=== PATIENT | female | born 1935 | race Caucasian/White ===

== ENCOUNTER → 2017-11-02 | Outpatient (CLI) | payer MEDICARE | LOC: M RAD 09:41 | DX: S06.0X0A Concussion without loss of consciousness, initial encounter (principal); I63.032 Cerebral infarction due to thrombosis of left carotid artery; X58.XXXA Exposure to other specified factors, initial encounter; Y92.89 Other specified places as the place of occurrence of the external cause; Y93.89 Activity, other specified; Y99.8 Other external cause status | CPT/HCPCS: 70450 ==

== ENCOUNTER → 2020-09-25 | Outpatient (REF) | payer MEDICARE ==
[~2020-09-25] MED LIST: AMLO1TAB25 PO; AMLO2.5T3 PO; AMLO25TA PO; ASPI81CH33 PO; ASPI81TAEC PO; ATOR1TAB21 PO; CARA1TAB6 PO; CETI10TA PO; CLOP75TA2 PO; DEXA5LQ PO; DOXA1TAB40 PO; EPIP0.3I2 IJ; GLUC1CAP9 PO; HYDR-2773 PO; LANS15CA PO; LIPI20TA PO; LOSA50TA88 PO; OMEP1CAP73 PO; POLYOPD OU; ZOCO40TA PO; [UNRECOGNIZED DRUG - CODE] PO; [UNRECOGNIZED DRUG - CODE] PO; [UNRECOGNIZED DRUG - CODE] PO
== END ==
LOC: M LAB REF 15:44
PROVIDERS: ATTEND Nurse Practitioner Family
DX: R30.0 Dysuria (principal)

== ENCOUNTER 2022-01-26 11:12 | Inpatient (IN) | payer MEDICARE ==
[~2022-01-26] VITALS: Ht 152.4 cm; Wt 66.2 kg
[~2022-01-26 11:12] MED LIST changes: +ASPI-569 PO; -ASPI81TAEC PO; +LOSA50TA28 PO; -LOSA50TA88 PO
[2022-01-26 11:57] LABS: BASO % 0.2 % (0.0-1.0); EOS # 0.1 10^3/uL (0.0-0.5); EOS % 0.8 % (0.0-3.0); HEMATOCRIT 43.9 % (36.0-47.0); HEMOGLOBIN 14.2 g/dl (12.0-15.5); LYMPH # 1.3 10^3/uL (1.5-5.0); LYMPH % 15.2 % (24.0-44.0); MEAN CORPUSCULAR HEMOGLOBIN 30.3 pg (27.0-33.0); MEAN CORPUSCULAR HGB CONC 32.3 g/dl (32.0-36.5); MEAN CORPUSCULAR VOLUME 93.8 fl (80.0-96.0); MONO # 0.7 10^3/uL (0.0-0.8); MONO % 7.7 % (2.0-8.0); NEUTROPHILS # 6.7 10^3/uL (1.5-8.5); NEUTROPHILS % 75.6 % (36.0-66.0); PLATELET COUNT, AUTOMATED 277 10^3/uL (150-450); RED BLOOD COUNT 4.68 10^6/uL (4.00-5.40); WHITE BLOOD COUNT 8.8 10^3/uL (4.0-10.0)
[2022-01-26 12:09] LABS: INR 1.49; PROTHROMBIN TIME 18.4 SECONDS (12.7-14.5)
[2022-01-26 12:33] LABS: CK-MB VALUE MASS 1.4 NG/ML (<3.6); MB/CK RELATIVE INDEX 0.71 (< OR =4)
[2022-01-26 13:26] LABS: BLOOD UREA NITROGEN 15 MG/DL (7-18); CALCIUM LEVEL 8.9 MG/DL (8.8-10.2); CARBON DIOXIDE LEVEL 27 MEQ/L (21-32); CHLORIDE LEVEL 106 MEQ/L (98-107); GLOMERULAR FILTRATION RATE > 60.0 (>32); GLUCOSE, FASTING 95 MG/DL (70-100); SODIUM LEVEL 139 MEQ/L (136-145)
[2022-01-26] MEDS ORDERED: ISOVUE-370 76% 100ML VIAL As Ordered ONE (14:08)
[2022-01-26] MEDS ORDERED: ATOR40TA75 PO (14:17)
[2022-01-26] MEDS ORDERED: POTA10CA32 PO (14:17)
[2022-01-26] MEDS ORDERED: LOSA100T45 PO (14:17)
[2022-01-26] MEDS ORDERED: AMLO1TAB25 PO (14:17)
[2022-01-26] MEDS ORDERED: POTA1TAB14 PO (14:17)
[2022-01-26] MEDS ORDERED: ELIQ5TAB PO (14:18)
[2022-01-26] MEDS ORDERED: CITA20TA6 PO (14:18)
[2022-01-26] MEDS ORDERED: SPIR-10 PO (14:18)
[2022-01-26] MEDS ORDERED: HOME MED LIST COMPLETE! XX SCH (14:20)
[2022-01-26 14:51] LABS: RSV AMPLIFICATION NEGATIVE (NEGATIVE)
[2022-01-26] MEDS ORDERED: POLYVINYL ALCOHOL OPHTH SOLN 15 ML(LIQUITEARS) OU PRN (15:25)
[2022-01-26 17:15] LABS: BLOOD UREA NITROGEN 13 MG/DL (7-18); CALCIUM LEVEL 8.9 MG/DL (8.8-10.2); CARBON DIOXIDE LEVEL 28 MEQ/L (21-32); CHLORIDE LEVEL 105 MEQ/L (98-107); CREATININE FOR GFR 0.82 MG/DL (0.55-1.30); GLOMERULAR FILTRATION RATE > 60.0 (>32); GLUCOSE, FASTING 87 MG/DL (70-100); POTASSIUM SERUM 4.5 MEQ/L (3.5-5.1); SODIUM LEVEL 138 MEQ/L (136-145)
[2022-01-26] MEDS ORDERED: hydrALAZINE 20MG/ML 1ML VIAL (J0360 PER 20MG) IV PRN (17:45)
[2022-01-26 19:16] VITALS: BP 138/89
[2022-01-26] MEDS ORDERED: ASPIRIN 81 MG CHEW TABLET PO ONE (19:55)
[2022-01-26] MEDS: APIXABAN 5 MG TAB (ELIQUIS) PO SCH (21:00)
[2022-01-26] MEDS ORDERED: ROSUVASTATIN 10 MG TAB (CRESTOR) PO SCH (21:00)
[2022-01-26] MEDS ORDERED: ATORVASTATIN 20 MG TAB PO SCH (21:00)
[2022-01-26] MEDS ORDERED: CitaloPRAM (CeleXA) 20 MG TAB PO SCH (21:00)
[2022-01-26 22:22] LABS: CALCIUM LEVEL 8.8 MG/DL (8.8-10.2); CREATININE FOR GFR 1.02 MG/DL (0.55-1.30); GLOMERULAR FILTRATION RATE 54.6 (>32); POTASSIUM SERUM 3.9 MEQ/L (3.5-5.1)
[2022-01-27 00:04] VITALS: BP 133/66
[2022-01-27 03:50] VITALS: BP 153/65
[2022-01-27 03:51] LABS: HEMATOCRIT 40.6 % (36.0-47.0); HEMOGLOBIN 13.4 g/dl (12.0-15.5); MEAN CORPUSCULAR HEMOGLOBIN 30.5 pg (27.0-33.0); MEAN CORPUSCULAR VOLUME 92.3 fl (80.0-96.0); PLATELET COUNT, AUTOMATED 291 10^3/uL (150-450); WHITE BLOOD COUNT 8.6 10^3/uL (4.0-10.0)
[2022-01-27 04:15] LABS: BLOOD UREA NITROGEN 15 MG/DL (7-18); CALCIUM LEVEL 8.8 MG/DL (8.8-10.2); CARBON DIOXIDE LEVEL 28 MEQ/L (21-32); CHLORIDE LEVEL 109 MEQ/L (98-107); CREATININE FOR GFR 0.87 MG/DL (0.55-1.30); GLOMERULAR FILTRATION RATE > 60.0 (>32); GLUCOSE, FASTING 88 MG/DL (70-100); SODIUM LEVEL 142 MEQ/L (136-145)
[2022-01-27 04:18] LABS: CHOLESTEROL RISK RATIO 2.271 (<5)
[2022-01-27] MEDS ORDERED: SELF1KIT MC (06:36)
[2022-01-27] MEDS ORDERED: ATOR1TAB21 PO (06:36)
[2022-01-27] MEDS ORDERED: amLODIPine 5 MG TAB PO PRN (06:40)
[2022-01-27 08:00] VITALS: BP 137/65
[2022-01-27] MEDS: APIXABAN 5 MG TAB (ELIQUIS) PO SCH (08:36)
[2022-01-27] MEDS ORDERED: ASPIRIN 81 MG CHEW TABLET PO SCH (09:00)
[2022-01-27] MEDS ORDERED: OMEPRAZOLE 20MG CAP PO SCH (09:00)
[2022-01-27 10:44] LABS: CALCIUM LEVEL 9.4 MG/DL (8.8-10.2); CREATININE FOR GFR 1.03 MG/DL (0.55-1.30); POTASSIUM SERUM 4.1 MEQ/L (3.5-5.1)
== END 2022-01-27 13:46 | disposition home or self-care (01) | DRG 65 ==
LOC: M ED 11:12 → EDBD 11:12 → M ED INP 15:19 → ENRESERV 16:43 → M PCU 19:02
PROVIDERS: ADMIT General Practice; ATTEND General Practice
DX: I63.59 Cerebral infarction due to unspecified occlusion or stenosis of other cerebral artery (principal); G81.91 Hemiplegia, unspecified affecting right dominant side; I10 Essential (primary) hypertension; E78.5 Hyperlipidemia, unspecified; K21.9 Gastro-esophageal reflux disease without esophagitis; I27.20 Pulmonary hypertension, unspecified; I48.0 Paroxysmal atrial fibrillation; M17.0 Bilateral primary osteoarthritis of knee; J30.9 Allergic rhinitis, unspecified; I65.22 Occlusion and stenosis of left carotid artery; Z79.01 Long term (current) use of anticoagulants; Z79.899 Other long term (current) drug therapy; Z91.030 Bee allergy status

== ENCOUNTER 2023-08-22 13:18 | Observation (INO) | payer MEDICARE ==
[~2023-08-22] VITALS: Ht 152.4 cm; Wt 65.7 kg
[~2023-08-22 13:18] MED LIST changes: +ARTIDRO4 OU; +ATOR40TA75 PO; +CITA20TA6 PO; +ELIQ5TAB PO; +LOSA100T46 PO; -POLYOPD OU; +POTA-298 PO; +POTA10CA60 PO; +SELF1KIT MC; +SIMV-254 PO; +SPIR-10 PO; -ZOCO40TA PO
[2023-08-22] MEDS ORDERED: ASPIRIN 81MG CHEW TABLET PO ONE (14:20)
[2023-08-22] MEDS ORDERED: ASPIRIN 325 MG TAB PO ONE (14:20)
[2023-08-22] MEDS ORDERED: ISOVUE-370 76% 100ML VIAL As Ordered ONE (14:24)
[2023-08-22 15:12] LABS: RSV AMPLIFICATION NEGATIVE (NEGATIVE)
[2023-08-22 15:12] LABS: BASO % 0.3 % (0.0-1.0); EOS # 0.1 10^3/uL (0.0-0.5); EOS % 1.2 % (0.0-3.0); HEMATOCRIT 40.9 % (36.0-47.0); HEMOGLOBIN 13.5 g/dl (12.0-15.5); LYMPH # 2.3 10^3/uL (1.5-5.0); LYMPH % 24.5 % (24.0-44.0); MEAN CORPUSCULAR HEMOGLOBIN 30.6 pg (27.0-33.0); MEAN CORPUSCULAR VOLUME 92.7 fl (80.0-96.0); MONO # 0.7 10^3/uL (0.0-0.8); MONO % 7.4 % (2.0-8.0); NEUTROPHILS # 6.2 10^3/uL (1.5-8.5); NEUTROPHILS % 66.3 % (36.0-66.0); PLATELET COUNT, AUTOMATED 274 10^3/uL (150-450); RED BLOOD COUNT 4.41 10^6/uL (4.00-5.40); WHITE BLOOD COUNT 9.3 10^3/uL (4.0-10.0)
[2023-08-22 15:51] LABS: BLOOD UREA NITROGEN 16 MG/DL (9-23); CALCIUM LEVEL 8.8 MG/DL (8.3-10.6); CARBON DIOXIDE LEVEL 25 MMOL/L (20-31); CHLORIDE LEVEL 106 MMOL/L (98-107); CREATININE FOR GFR 0.83 MG/DL (0.55-1.30); GLOMERULAR FILTRATION RATE > 60.0 (>32); GLUCOSE, FASTING 79 MG/DL (74-106); POTASSIUM SERUM 5.1 MMOL/L (3.5-5.1); SODIUM LEVEL 141 MMOL/L (136-145)
[2023-08-22 16:35] LABS: INR 1.6; PARTIAL THROMBOPLASTIN TIME 28.8 SECONDS (24.8-34.2); PROTHROMBIN TIME 18.5 SECONDS (12.5-14.5)
[2023-08-22 18:00] LABS: FREE T4 1.04 NG/DL (0.89-1.76); THYROID STIMULATING HORMONE 2.411 uIU/ML (0.55-4.78)
[2023-08-22 18:03] LABS: CK-MB VALUE MASS < 1.0 NG/ML (<3.6); CPK CREATINE PHOSPHOKINASE 73 U/L (34-145); MB/CK RELATIVE INDEX 1.36 (< OR =4)
[2023-08-22 18:31] LABS: MB/CK RELATIVE INDEX 1.85 (< OR =4)
[2023-08-22] MEDS ORDERED: BETA0.0543 TOP (18:48)
[2023-08-22] MEDS ORDERED: ATOR40TA75 PO (18:48)
[2023-08-22] MEDS ORDERED: AMLO1TAB24 PO (18:48)
[2023-08-22] MEDS ORDERED: MED REC IN PROGRESS XX SCH (18:50)
[2023-08-22] MEDS ORDERED: ECOT81TA5 PO (18:54)
[2023-08-22] MEDS ORDERED: POTA10CA60 PO (18:54)
[2023-08-22] MEDS ORDERED: LINZ145C PO (18:54)
[2023-08-22] MEDS ORDERED: TRAZ-252 PO (18:57)
[2023-08-22] MEDS ORDERED: HOME MED LIST COMPLETE! XX SCH (19:00)
[2023-08-22] MEDS ORDERED: traZODone 50 MG TAB PO PRN (20:40)
[2023-08-22] MEDS ORDERED: ACETAMINOPHEN TAB 650MG DOSE (2X325MG) PO PRN (20:40)
[2023-08-22] MEDS ORDERED: ATORVASTATIN 20 MG TAB PO SCH (21:00)
[2023-08-22] MEDS ORDERED: LOSARTAN 50MG TABLET PO SCH (21:00)
[2023-08-22] MEDS: ASPIRIN 81MG ENTERIC TABLET PO SCH ×2 (21:00→22:52)
[2023-08-22 22:40] VITALS: BP 154/65; TEMP 98.1; O2SAT 94
[2023-08-22] MEDS: APIXABAN 5 MG TAB (ELIQUIS) PO SCH (22:51)
[2023-08-23 06:00] VITALS: BP 139/71; TEMP 98.1; O2SAT 95
[2023-08-23 06:14] LABS: HEMATOCRIT 40.8 % (36.0-47.0); HEMOGLOBIN 13.2 g/dl (12.0-15.5); MEAN CORPUSCULAR HGB CONC 32.4 g/dl (32.0-36.5); MEAN CORPUSCULAR VOLUME 92.7 fl (80.0-96.0); PLATELET COUNT, AUTOMATED 260 10^3/uL (150-450); WHITE BLOOD COUNT 7.5 10^3/uL (4.0-10.0)
[2023-08-23 06:42] LABS: BLOOD UREA NITROGEN 16 MG/DL (9-23); CALCIUM LEVEL 9.3 MG/DL (8.3-10.6); CARBON DIOXIDE LEVEL 28 MMOL/L (20-31); CHLORIDE LEVEL 107 MMOL/L (98-107); CREATININE FOR GFR 0.91 MG/DL (0.55-1.30); GLOMERULAR FILTRATION RATE > 60.0 (>32); GLUCOSE, FASTING 86 MG/DL (74-106); POTASSIUM SERUM 4.7 MMOL/L (3.5-5.1); SODIUM LEVEL 143 MMOL/L (136-145)
[2023-08-23 08:00] VITALS: BP 143/73; TEMP 98.1; O2SAT 98
[2023-08-23 08:41] VITALS: BP 143/73
[2023-08-23] MEDS: APIXABAN 5 MG TAB (ELIQUIS) PO SCH (08:42)
[2023-08-23] MEDS ORDERED: SPIRONOLACTONE 25 MG TAB PO SCH (09:00)
[2023-08-23] MEDS ORDERED: OMEPRAZOLE 20MG CAP PO SCH (09:00)
[2023-08-23] MEDS ORDERED: amLODIPine 5 MG TAB PO SCH (09:00)
[2023-08-23] MEDS ORDERED: POTASSIUM CHLORIDE 10MEQ SR TABLET PO SCH (09:00)
[2023-08-23] MEDS ORDERED: PREVNAR-20 VACCINE 0.5ML SYRINGE IM.IMMUN ONE (13:00)
[2023-08-23 13:32] VITALS: BP 126/70; TEMP 97.9; O2SAT 98
== END 2023-08-23 17:29 | disposition home or self-care (01) ==
LOC: M ED 13:18 → M ED INP 13:19 → M MSPAV 22:47
PROVIDERS: ADMIT Family Medicine; ATTEND Family Medicine
DX: G45.9 Transient cerebral ischemic attack, unspecified (principal); I47.9 Paroxysmal tachycardia, unspecified; I67.82 Cerebral ischemia; G31.1 Senile degeneration of brain, not elsewhere classified; I11.0 Hypertensive heart disease with heart failure; K21.9 Gastro-esophageal reflux disease without esophagitis; I50.30 Unspecified diastolic (congestive) heart failure; I27.20 Pulmonary hypertension, unspecified; M19.90 Unspecified osteoarthritis, unspecified site; Z86.73 Personal history of transient ischemic attack (TIA), and cerebral infarction without residual deficits; Z91.030 Bee allergy status; Z79.899 Other long term (current) drug therapy; Z79.01 Long term (current) use of anticoagulants; Z79.82 Long term (current) use of aspirin; Z66 Do not resuscitate
CPT/HCPCS: 36415; 70450; 70496; 70498; 70551; 71045; 80047; 80048; 82550; 82553; 83735; 84439; 84443; 84484; 85025; 85027; 85610; 85730; 87631; 93005; 93041; 93306; 94760; 99285; G0378; Q9967